=== PATIENT | female | born 1975 | race Caucasian/White ===

== ENCOUNTER → 2018-02-20 | Outpatient (CLI) | payer OTHER ==
[2018-02-20] VITALS (16 sets, daily range): BP systolic 129–167; BP diastolic 89–110
[~2018-02-20] MED LIST: LEVAQUIN 500 M500 M2 PO; WELLBUTRIN SR150 MG PO
--- NOTE | 2018-03-06 15:42 | CARD ---
[address] [address] CARDIAC CATH REPORT Name: DOMINIQUE JACKMAN Room: [facility].#: [id number] Admission: 02/20/18 Attend Phys: Keyur Jha MD Discharge: Date of : 77 Report #: [id number] THIS REPORT FOR: //name// CC: Keyur Kumarinton DATE OF SERVICE: 02/20/2018 TILT TABLE TEST ORDERING PHYSICIAN: Rigoberto Briceño MD, [facility] INDICATION: Presyncope. CONSENT: The risks and benefits of the procedure described to the patient in lay terms. The patient elects to proceed. Baseline blood pressure is 138/90 with the heart rate of 78. Underlying rhythm is sinus. The patient was tilted per protocol to 70 degrees. At that time, her blood pressure increased to 166/94 with the pulse of 94. The patient felt nauseous and dizzy and the patient maintained a sinus rhythm. Blood pressure and heart rate were monitored per protocol every 2-3 minutes. The patient had continued symptoms of nausea, weakness, hand tingling and started seeing a black spots, but she still remained hemodynamically stable with blood pressures 150/102 with a pulse of 85 and in sinus rhythm. The patient then apparently had a syncopal spell with tremor-like activity and her blood pressure still remained stable at 159/105 with a pulse of 93. There were no cardiac pauses. She still maintains a sinus rhythm. She immediately regained consciousness and her blood pressure still remains stable 157/97, heart rate of 75. IMPRESSION: Clinically positive tilt table test for vasovagal syncope, but hemodynamics remained stable. There was no vasomotor or vasoinhibitory hemodynamic response. <ELECTRONICALLY SIGNED> By: Keyur Jha MD, FACC 03/06/18 1542 [id number] [id number] Jha MD, FACC /nt
== END | disposition home or self-care (01) ==
LOC: M.CL 09:51
DX: R55 Syncope and collapse (principal)

== ENCOUNTER 2018-09-15 22:37 | Emergency (ER) | payer OTHER ==
[~2018-09-15] VITALS: Ht 157.5 cm; Wt 61.2 kg
[2018-09-15] MEDS ORDERED: WELLBUTRIN SR150 MG PO (22:54)
[2018-09-15 23:53] LABS: ABSOLUTE BASOPHILS 0.1 thou/uL (0.0-0.2); ABSOLUTE EOSINOPHILS 0.1 thou/uL (0.0-0.7); ABSOLUTE LYMPHOCYTES 3.1 thou/uL (0.8-5.3); ABSOLUTE MONOCYTES 0.6 thou/uL (0.0-1.2); ABSOLUTE NEUTROPHILS 4.3 thou/uL (1.6-8.1); EOSINOPHILS 1.4 %; HEMATOCRIT 40.2 % (37.0-47.0); HEMOGLOBIN 13.7 gm/dL (12.0-15.0); LYMPHOCYTES 37.9 %; MCH 34.8 pg (26.0-34.0); MCHC 34.2 g/dL (28.0-37.0); MCV 101.9 fL (80.0-100.0); MONOCYTES 7.5 %; NUCLEATED RBCS 0 /100WBC; PLATELET COUNT* 216 thou/uL (150-400); POLYS 52.2 %; RBC 3.95 mil/uL (4.20-5.00); RDW-CV 13.1 % (10.5-14.5); WBC 8.2 thou/uL (4.0-11.0)
[2018-09-15 23:57] LABS: CALCIUM 9.1 mg/dL (8.5-10.1); CREATININE 0.8 mg/dL (0.6-1.3); POTASSIUM 4.3 mmol/L (3.5-5.1)
[2018-09-16 00:01] LABS: ALBUMIN 4.1 g/dL (3.4-5.0); TOTAL BILIRUBIN 0.2 mg/dL (<0.1-1.0); TOTAL PROTEIN 7.9 g/dL (6.4-8.2)
[2018-09-16] MEDS ORDERED: LEVAQUIN 500 M500 M2 PO (00:46)
[2018-09-16 00:59] VITALS: BP 111/72
[2018-09-16 01:25] LABS: ESR (SEDRATE) 7 mm/hr (0-20)
== END 2018-09-16 01:01 | disposition home or self-care (01) ==
LOC: M.ERS 22:37
PROVIDERS: Physician Assistant
DX: M25.522 Pain in left elbow (principal); R22.32 Localized swelling, mass and lump, left upper limb; Z88.5 Allergy status to narcotic agent; W57.XXXA Bitten or stung by nonvenomous insect and other nonvenomous arthropods, initial encounter; Y93.89 Activity, other specified; Y92.89 Other specified places as the place of occurrence of the external cause; Y99.8 Other external cause status

== ENCOUNTER → 2018-11-06 | Outpatient (CLI) | payer OTHER ==
[~2018-11-06] MED LIST changes: +MEDROLDOSEPACK PO
== END ==
LOC: M.RAD 15:04
DX: M25.522 Pain in left elbow (principal)

== ENCOUNTER 2018-11-09 14:48 | Emergency (ER) | payer OTHER ==
[~2018-11-09] VITALS: Ht 157.5 cm; Wt 61.2 kg
[~2018-11-09 14:48] MED LIST changes: -MEDROLDOSEPACK PO
[2018-11-09 15:38] LABS: ABSOLUTE BASOPHILS 0.1 thou/uL (0.0-0.2); ABSOLUTE LYMPHOCYTES 2.5 thou/uL (0.8-5.3); ABSOLUTE MONOCYTES 0.8 thou/uL (0.0-1.2); ABSOLUTE NEUTROPHILS 7.5 thou/uL (1.6-8.1); BASOPHILS 0.8 %; EOSINOPHILS 0.4 %; HEMATOCRIT 40.7 % (37.0-47.0); HEMOGLOBIN 13.9 gm/dL (12.0-15.0); LYMPHOCYTES 23.2 %; MCH 34.7 pg (26.0-34.0); MCHC 34.1 g/dL (28.0-37.0); MCV 101.9 fL (80.0-100.0); MONOCYTES 7.5 %; NUCLEATED RBCS 0 /100WBC; PLATELET COUNT* 197 thou/uL (150-400); POLYS 68.1 %; RBC 3.99 mil/uL (4.20-5.00); RDW-CV 12.7 % (10.5-14.5)
[2018-11-09 15:48] LABS: CALCIUM 9.1 mg/dL (8.5-10.1); CREATININE 0.9 mg/dL (0.6-1.3)
[2018-11-09 15:54] LABS: ALBUMIN 3.6 g/dL (3.4-5.0); TOTAL BILIRUBIN 0.4 mg/dL (<0.1-1.0); TOTAL PROTEIN 7.1 g/dL (6.4-8.2); URIC ACID* 3.9 mg/dL (2.6-7.2)
[2018-11-09 16:42] LABS: ESR (SEDRATE) 2 mm/hr (0-20)
[2018-11-09] MEDS ORDERED: MEDROLDOSEPACK PO (16:48)
[2018-11-09 17:00] VITALS: BP 160/109
== END 2018-11-09 17:01 | disposition home or self-care (01) ==
LOC: M.ERS 14:48
PROVIDERS: Nurse Practitioner Family
DX: M25.422 Effusion, left elbow (principal); F17.200 Nicotine dependence, unspecified, uncomplicated; M79.7 Fibromyalgia; Z88.8 Allergy status to other drugs, medicaments and biological substances; Z90.710 Acquired absence of both cervix and uterus

== ENCOUNTER 2019-01-18 13:31 | Inpatient (IN) | payer OTHER ==
[~2019-01-18] VITALS: Ht 157.5 cm; Wt 61.7 kg
[~2019-01-18 13:31] MED LIST changes: +MEDROLDOSEPACK PO
[2019-01-18 13:50] VITALS: BP 145/102
[2019-01-18] MEDS ORDERED: KEFLEX500 M2 PO (13:54)
[2019-01-18 14:27] LABS: ABSOLUTE BASOPHILS 0.1 thou/uL (0.0-0.2); ABSOLUTE EOSINOPHILS 0.1 thou/uL (0.0-0.7); ABSOLUTE LYMPHOCYTES 2.4 thou/uL (0.8-5.3); ABSOLUTE MONOCYTES 0.5 thou/uL (0.0-1.2); ABSOLUTE NEUTROPHILS 9.4 thou/uL (1.6-8.1); BASOPHILS 0.5 %; EOSINOPHILS 0.6 %; HEMATOCRIT 38.9 % (37.0-47.0); HEMOGLOBIN 13.2 gm/dL (12.0-15.0); LYMPHOCYTES 18.9 %; MCH 34.1 pg (26.0-34.0); MCV 100.3 fL (80.0-100.0); MONOCYTES 4.4 %; MPV 9.9 fl. (7.2-11.1); NUCLEATED RBCS 0 /100WBC; PLATELET COUNT* 218 thou/uL (150-400); POLYS 75.6 %; RBC 3.88 mil/uL (4.20-5.00); RDW-CV 12.8 % (10.5-14.5); WBC 12.5 thou/uL (4.0-11.0)
[2019-01-18 14:40] LABS: ALBUMIN 3.6 g/dL (3.4-5.0); CALCIUM 8.8 mg/dL (8.5-10.1); CREATININE 0.9 mg/dL (0.6-1.3); POTASSIUM 3.4 mmol/L (3.5-5.1); TOTAL BILIRUBIN 0.3 mg/dL (<0.1-1.0); TOTAL PROTEIN 7.2 g/dL (6.4-8.2)
[2019-01-18 14:41] LABS: URINE BILIRUBIN NEGATIVE (Negative); URINE BLOOD TRACE (Negative); URINE CLARITY CLEAR; URINE COLOR YELLOW; URINE GLUCOSE-RANDOM NEGATIVE (Negative); URINE KETONES NEGATIVE (Negative); URINE LEUKOCYTES-REFLEX NEGATIVE (Negative); URINE NITRITE-REFLEX NEGATIVE (Negative); URINE PROTEIN NEGATIVE (Negative); URINE SPECIFIC GRAVITY 1.025 (1.005-1.030); URINE UROBILINOGEN 0.2 E.U./dl (0.2-1.0)
[2019-01-18 15:15] VITALS: BP 123/78
[2019-01-18 16:21] VITALS: BP 140/94
--- NOTE | 2019-01-18 16:48 | NUR ---
PATIENT ADMITTED TO ROOM 318 FROM ER. LEFT ELBOW DRAINAGE NOTED, BURSA DRAINED IN JUL AND PATIENT STATED HAVING ISSUES WITH ELBOW EVER SINCE. PATIENT SAW DR. BENEDICT TODAY, PATIENT STATED DR. ESCOBAR STATED HE WOULD DO SURGERY TOMORROW ON ELBOW. PHOTO TAKEN OF ELBOW AND DRESSING PLACED. IVF AND SCHED ABX INFUSING. PRN HYDROCODONE GIVEN PER JAN ORDER. NO OTHER SKIN BREAKDOWN NOTED. REFUSED SCD'S. REG DIET, NPO AFTER MIDNIGHT. INSTRUCTED PATIENT TO CALL FOR ASSISTANCE GETTING OUT OF BED, PATIENT STATED SHE HAS SYNCOPLE EPISODES AND HAS FALLEN. CALL LIGHT WITHIN REACH, WILL CONTINUE TO MONITOR.
[2019-01-18 21:31] VITALS: BP 123/72
[2019-01-19 04:48] VITALS: BP 123/72
[2019-01-19 05:00] LABS: ABSOLUTE EOSINOPHILS 0.1 thou/uL (0.0-0.7); ABSOLUTE LYMPHOCYTES 3.6 thou/uL (0.8-5.3); ABSOLUTE MONOCYTES 0.6 thou/uL (0.0-1.2); ABSOLUTE NEUTROPHILS 2.4 thou/uL (1.6-8.1); BASOPHILS 0.5 %; EOSINOPHILS 1.4 %; HEMATOCRIT 37.1 % (37.0-47.0); HEMOGLOBIN 12.5 gm/dL (12.0-15.0); LYMPHOCYTES 53.9 %; MCH 34.3 pg (26.0-34.0); MCHC 33.7 g/dL (28.0-37.0); MCV 101.8 fL (80.0-100.0); MONOCYTES 8.5 %; MPV 9.7 fl. (7.2-11.1); NUCLEATED RBCS 0 /100WBC; PLATELET COUNT* 166 thou/uL (150-400); POLYS 35.7 %; RBC 3.65 mil/uL (4.20-5.00); RDW-CV 12.8 % (10.5-14.5); WBC 6.7 thou/uL (4.0-11.0)
[2019-01-19 05:14] LABS: CALCIUM 8.2 mg/dL (8.5-10.1); CREATININE 0.8 mg/dL (0.6-1.3); POTASSIUM 3.9 mmol/L (3.5-5.1)
--- NOTE | 2019-01-19 05:43 | NUR ---
PATIENT ALERT/ORIENTED X4, PLEASANT. PT UP TO BATHROOM WITH STANDBY ASSIST. PT WITH FLUIDS/ANTIBIOTICS INFUSING IN RT HAND PER DR ORDER. PT REFUSING PAIN MEDIATION AT HS STATING SHE WOULD LIKE TO HAVE TWO HYDROCODONE CLOSE TO MIDNIGHT TO GET HER THROUGH THE NIGHT WHILE SHE IS NPO. PT INFORMED SHE HAD IV PAIN MEDS IF NEEDED. PO PAIN MEDS GIVEN CLOSE TO MIDNIGHT PER PT REQUEST AND PT SLEPT WELL THE REST OF THE NIGHT. ICE PACK PROVIDED FOR LT ELBOW. ELBOW WITH SUMAN WRAP IN PLACE AND ELEVATED ON PILLOW. PT DENIES NEEDS AT THIS TIME. FREQUENTLY USED ITEMS AND CALL LIGHT WITHIN REACH. SIDERAILS UPX2. WILL CONTINUE TO MONITOR.
[2019-01-19 07:10] VITALS: BP 128/79
--- NOTE | 2019-01-19 09:40 | EKG ---
[place] [address] ELECTROCARDIOGRAM REPORT Name: DOMINIQUE JACKMAN Room: [address] ADM IN M.R.#: [id number] Admission: 01/18/19 Attend Phys: Margarito Elam MD Discharge: Date of : 77 Report #: [id number] THIS REPORT FOR: //name// [facility] Test Date: 2019-01-19 Test Time: 05:09:35 Pat Name: DOMINIQUE JACKMAN Department: Room: [address] Gender: F Pharmaceutical Laboratory Technician: Kenan Stanley : 1975 Requested By: Bobby Tang Order Number: [id number] Jose Guadalupe MD: Bandar Perez Measurements Intervals Drummond Rate: 58 P: 50 IN: 131 QRS: 25 QRSD: 81 T: 28 QT: 438 QTc: 431 Interpretive Statements Sinus rhythm No previous ECG available for comparison Electronically Signed On 01-19-2019 9:40:40 PEDIATRIC NEUROPSYCHOLOGIST by Bandar Perez [email or web address] <ELECTRONICALLY SIGNED> By: Bandar Perez MD, [facility] 01/19/19 0940 0509 0509 Bandar Perez MD, FACC /EPI
[2019-01-19 09:55] VITALS: BP 131/95
--- NOTE | 2019-01-19 14:54 | NUR ---
RIGHT BASILIC VESSEL ACCESSED FOR 4 GREEK SINGLE LUMEN PICC. LINE PRE-TRIMMED TO 31 CM AND ADVANCED TO THE ZERO MARIA A WITH NO RESISTANCE MET. UPPER ARM CIRCUMFERENCE ABOVE INSERTION SITE= 12 3/4". SHERLOCK MAGNET AND 3CG CONFIRMATION OF TIP TERMINATION AT THE CAVOATRIAL JUMCTION. GUIDEWIRE REMOVED, LINE FLUSHED AND REPORT GIVEN TO JORY HERNANDEZ.
--- NOTE | 2019-01-19 16:16 | NUR ---
SW met with pt to complete initial assessment, introduce self, and SW role. Pt alert, oriented, pleasant. Pt lives at home with her significant other Stef. Pt says she has support at home and does not anticipate any dc needs and is hopeful to dc soon. SW to continue to follow to assist with safe dc planning if needs arise.
[2019-01-19 16:24] VITALS: BP 129/78
--- NOTE | 2019-01-19 16:54 | NUR ---
PATIENT HAD I/D THIS AM TO LEFT ELBOW WITH DR. ESCOBAR. DRESSING AND SUMAN WRAP INTACT, PATIENT STATED HER LEFT HAND FELT TINGLY BUT SHE WAS ABLE TO MOVE FINGERS AND CAP REFILL LESS THAN 3 SECONDS. LEFT ARM WARM TO THE TOUCH. LEFT ARM ELEVATED AND ICE NEEDED. PATIENT HAD PICC PLACED TO RIGHT UPPER ARM PER ID ORDERS. PATIENT REMAINS ON IV VANCOMYCIN. PRN VICODIN GIVEN X 1 THIS SHIFT WITH GOOD RELIEF NOTED.
[2019-01-19 22:04] VITALS: BP 127/84
--- NOTE | 2019-01-20 05:15 | NUR ---
PATIENT C/O LT ELBOW PAIN AND HEADACHE AT BEGINNING OF SHIFT. PT WAS GIVEN HYDROCODONE 2 TABS PRIOR TO SHIFT CHANGE BUT HEAD CONTINUED TO HURT. FENTANYL 50MCG IV GIVEN PER PT REQUEST. LT ELBOW ELEVATED; DSG C/D/I. PT UP WITH STANDBY TO BATHROOM TO VOID. PT WITH RT PICC LINE; ABLE TO FLUSH/DRAW WITH NO RESISTANCE. PT GIVEN VANC IV AM DOSE AND BEGAN HAVING REDNESS AND ITCHING OF BACK, CHEST AND HEAD. YOUCALLMD PLACED TO DR DENT AND ORDER RECEIVED FOR BENEDRYL 50MG PO Q6H PRN FOR ITCHING. ALSO SAID TO CONTINUE THE IV VANC ORDERED. PT GIVEN TWO HYDROCODONE THIS AM FOR ELBOW PAIN. PT SAID BENEDRYL HAS HELPED WITH ITCHING AND HAS DENIED ANY DIFFICULTY BREATHING OR TIGHTNESS IN THROAT OR CHEST. FREQUENTLY USED ITEMS AND CALL LIGHT WITHIN REACH. SIDERAILS UPX2. WILL CONTINUE TO MONITOR.
[2019-01-20 07:50] VITALS: BP 114/67
[2019-01-20 12:00] VITALS: BP 115/63
--- NOTE | 2019-01-20 12:24 | CON ---
[address] [address] CONSULTATION Name: GASPERDOMINIQUE Yanes Room: [address] IN .R.#: [id number] Admission: 01/18/19 Attend Phys: Margarito Elam MD Discharge: Date of : 77 Report #: [id number] THIS REPORT FOR: //name// CC: Margarito Elam Bobby Elder DATE OF SERVICE: 01/19/2019 INFECTIOUS DISEASE CONSULTATION: ATTENDING PHYSICIAN: Margarito Elam MD. REASON FOR EVALUATION: Left elbow deep infection. HISTORY OF PRESENT ILLNESS: Chart reviewed, patient examined. This is a 43-year-old woman with a history of fibromyalgia who apparently was on vacation in [place], believes she was bitten on the olecranon aspect of her left elbow. She developed some inflammatory changes when she returned. She was evaluated and felt to have an infection. She was treated with antibiotics, corticosteroids and underwent perhaps a drainage procedure, has failed to resolve the issue after a couple of courses of antibiotics. She was seen by Orthopedic Surgery who did a more formal I and D back in October. Initial injury was in 07/2018. She has had open sites since that time followed by the wound care center and felt to have not progressed in terms of healing. So, she was readmitted for additional evaluation, did undergo operative debridement. Initial testing in terms of blood cultures were otherwise unremarkable. Operative cultures in progress. She was empirically started on antimicrobials with vancomycin. She has moderate degree of pain, denies any recent fevers. Appetite has been fair. Weight has been stable. No pulmonary or gastrointestinal related complaints. ALLERGIES: To no medicines. CURRENT MEDICATIONS: Include acetaminophen, ondansetron, fentanyl, vancomycin, pantoprazole, enoxaparin. PAST MEDICAL HISTORY: Fibromyalgia, previous hysterectomy, some syncopal episodes. SOCIAL HISTORY: Smokes in the last 27 years of tobacco. No illicit drug use. Does drink a fair amount. FAMILY HISTORY: Noncontributory. REVIEW OF SYSTEMS: Otherwise, unremarkable 10-point [place] [address] CONSULTATION Name: DOMINIQUE JACKMAN Room: [address]#: [id number] Admission: 01/18/19 Attend Phys: Margarito Elam MD Discharge: Date of : 77 Report #: [id number] described above. PHYSICAL EXAMINATION: GENERAL: She is pleasant, appears to be in pdpj-dh-swpsjkjy distress. She is seen postop. She is lucid. She is bundled in several blankets, appears somewhat undernourished. VITAL SIGNS: Temperature 98.5, pulse 73, respirations 16, blood pressure 131/95. SKIN: Warm, dry. SKIN: Extensive tattoos. HEENT: Normocephalic. Extraocular muscles intact. NECK: Supple. LUNGS: Clear to auscultation. HEART: Regular. I do not appreciate a murmur. ABDOMEN: Soft, nontender, nondistended. There is some dressing over the left elbow that was not disturbed. GENITOURINARY: Deferred. RECTAL: Deferred. LABORATORY DATA: Blood cultures sterile thus far. Electrolytes: Sodium 139, potassium 3.9, chloride 107, bicarbonate 23, BUN and creatinine 15 and 0.8. CBC: White count of 6.7, H and H 12.5/37.1, platelets of 166. Lactic acid 0.9, that is down from initially 2.5. Liver functions unremarkable. Albumin 3.6. Total protein 7.2. Estimated GFR of 69. ASSESSMENT: Chronic wound associated with the left elbow. She has had several procedures, ongoing wound care without success. I think it is reasonable to assume there may be some residual infection, perhaps reasons to have somewhat slow wound healing, her smoking history, but since she is seen postop, we will await those culture results. Continue empiric therapy, vancomycin should give us adequate treatment. This did occur perhaps through a bug bite, would think if there was a transmissible microorganism from the particular arthropod would have some ongoing local issues. We will discuss with Dr. Tang to see if there is anything odd about the appearance of the tissue, not convinced she has any systemic illness at this point. <ELECTRONICALLY SIGNED> By: Geoff Bernstein MD 01/20/19 1224 1217 [id number] Bernstein MD /nt
[2019-01-20 14:54] VITALS: BP 104/50
--- NOTE | 2019-01-20 16:41 | OP ---
[address] [address] OPERATIVE REPORT Name: DOMINIQUE JACKMAN Room: [address] IN .R.#: [id number] Admission: 01/18/19 Attend Phys: Margarito Elam MD Discharge: Date of : 77 Report #: [id number] THIS REPORT FOR: //name// CC: Margarito Elder DATE OF SERVICE: 01/19/2019 PREOPERATIVE DIAGNOSIS: Left elbow wound dehiscence with drainage. POSTOPERATIVE DIAGNOSIS: Left elbow wound dehiscence with drainage. PROCEDURE: Left elbow arthrotomy with irrigation and debridement. SURGEON: DO VIRGIL Cervantes II SURGEON: LAITH Leo ANESTHESIA: LMA. ESTIMATED BLOOD LOSS: Minimal. ANTIBIOTICS: Vancomycin preoperatively. DRAINS: None. COMPLICATIONS: None. CONDITION OF PATIENT: Sable to the recovery room. DESCRIPTION OF PROCEDURE: The patient was taken to the operative suite and placed supine on the operative table and given appropriate anesthesia. The patient's left elbow was sterilely prepped and draped. No tourniquet was applied. The patient's previous wound from bursectomy was opened along its margins. It was then freshened with a scalpel along its edges utilizing a curette and rongeur. Subcuticular tissue and granulation tissue was removed. There was found to be slight purulence noted to the fluid; however, no cristobal pus. There was straw colored serous drainage and bloody drainage noted. There was no significant pocketing. There was only one minor area with possible involvement of the joint, which was on the medial ulnar side that did not invade the ulnar nerve. Utilizing a curette, this area was curetted down to fresh bleeding tissue. It was then cleansed utilizing 3 liters of Pulsavac saline with bacitracin and 3 liters of Pulsavac saline without bacitracin with curettings in between to remove all necrotic and possible infected tissue. Cultures were obtained prior to this utilizing [place] [address] OPERATIVE REPORT Name: DOMINIQUE JACKMAN Room: [address] IN [facility].#: [id number] Admission: 01/18/19 Attend Phys: Margarito Elam MD Discharge: Date of : 77 Report #: [id number] irrigation was performed. Tissue did look viable without significant erythema and was closed utilizing 3-0 nylon in simple interrupted fashion. The patient was then placed in a soft dressing with posterior splint. Due to the limited nature of this infection, I am able to close the skin without significant erythema. The patient is discussed continued IV antibiotics until appropriate oral medications can be determined if is an option and subsequent discharge with close followup and monitoring. The patient tolerated the procedure well and was transferred to the recovery room in stable condition. Counts were correct throughout the procedure. <ELECTRONICALLY SIGNED> By: Bobby Tang II DO 01/20/19 1641 2131 [id number] Gualberto Tang II, DO /nt
--- NOTE | 2019-01-20 16:41 | CON ---
[address] [address] CONSULTATION Name: GASPERDOMINIQUE M Room: [address] IN .R.#: [id number] Admission: 01/18/19 Attend Phys: Margarito Elam MD Discharge: Date of : 77 Report #: [id number] THIS REPORT FOR: //name// CC: Margarito Elder DATE OF SERVICE: 01/19/2019 CHIEF COMPLAINT: Left elbow wound, nonhealing with possible infection. HISTORY OF PRESENT ILLNESS: The patient is a 43-year-old white female who was previously seen in the clinic, has had a wound since 07/2018 when she went to [place] mentioned a possible insect bite. Has tried various antibiotics and anti-inflammatory meds with her PCP, Dr. Elder as well as injections and eventually was referred for orthopedic evaluation and subsequently undergone surgical resection of bursa on the posterior aspect of her left elbow approximately one month ago. The patient had improvement after 2-week visit; however, then had continued use of the elbow and noticed increased swelling and finally slight opening in the wound and was sent for the ER for evaluation. The patient has had intractable pain, has undergone IV antibiotics here in the hospital. Denies any fevers, chills. No nausea or vomiting. No other significant complaints. PROBLEM LIST: Joint effusion of the elbow, pain and swelling of the upper extremity, fibromyalgia, syncopal episode, hysterectomy. PAST SURGICAL HISTORY: Hysterectomy and bursa drained. FAMILY HISTORY: The patient denies any cancers in the family or any other joint inflammation. SOCIAL HISTORY: The patient denies any recreational drug use. Does use tobacco every day, quitting cigarettes 1 to 1-1/2 packs, had used for the last 27 years. Alcohol frequently, greater than 10 beers. REVIEW OF SYSTEMS: Negative except for pertinent positives on a 12-system review of systems. ALLERGIES: No known drug allergies. MEDICATIONS: Keflex. PHYSICAL EXAMINATION: VITAL SIGNS: Blood pressure 123/78, pulse ox 99, pulse 74, respirations 19, temperature 97.7. [place] [address] CONSULTATION Name: DOMINIQUE JACKMAN Room: [address] IN [facility]#: [id number] Admission: 01/18/19 Attend Phys: Margarito Elam MD Discharge: Date of : 77 Report #: [id number] GENERAL: Alert and oriented, no significant distress. HEENT: Normocephalic, atraumatic. Pupils equal, round, reactive to light and accommodation. Nose clear without ulcerations. Mouth, moist mucous membranes. NECK: Supple, no JVD, no bruit. CARDIOVASCULAR: Regular rate and rhythm. Cap refill normal. LUNGS: Clear to auscultation bilaterally. No wheezes, rhonchi or rales. ABDOMEN: Soft, bowel sounds present, no masses. EXTREMITIES: The patient's left elbow does have scant purulent discharge and tenderness with all ranges of motion and opening of the wound with pale granulation tissue. SKIN: Normal in color, only minor erythema, no streaking. PSYCHIATRIC: The patient has appropriate mood and affect. NEUROLOGICAL: The patient is alert, conversational. Cranial nerves intact. LABORATORY STUDIES: White blood cells 12.5. Urine clean catch, only trace blood, negative for nitrites. Lactic acid 2.5, potassium 3.4, sodium 138, chloride 103, ALT 24, glucose 123, absolute neutrophils 9.4. Blood cultures have been received, no results this time. IMPRESSION: Nonhealing wound, left elbow with elbow drainage; prior history of bursectomy; intractable pain and leukocytosis. PLAN: At this time, the patient has been admitted, has analgesics. We will hydrate and start IV antibiotics. We will proceed with orthopedic irrigation and debridement of the elbow and posterior wound with closure and continue IV antibiotics at this time with future antibiotic treatment. The patient has discussed this treatment plan and is agreeable, is educated at bedside. <ELECTRONICALLY SIGNED> By: Bobby Tang II, DO 01/20/19 1641 2128 1549Bobby Tang II, DO /nt
--- NOTE | 2019-01-20 17:11 | NUR ---
[employer] INFORMED BY DR LAN THAT THE PATIENT WOULD NEED I.V. ABT'S AT D/C. PATIENT DOES NOT HAVE INSURANCE. D/C ROUGE SIFTER AND MILLER SPOKE TO RENE WITH [employer] TO DISCUSS THE [id number] AMOUNT FOR PATIENT PAY WITH [employer]. RENE INFORMS THAT THE COST WOULD BE $48 PER/DAY FOR THE ABT, AND $20 PER/DAY FOR SUPPLIES. [facility] ALSO HAS PAYMENT ARRANGEMENT OPTIONS OF 6, 12, AND 18 MONTH PLANS IF NEEDED DEPENDENT ON THE LENGTH OF THE THERAPY. AIDE SPOKE TO THE PATIENT TO DISCUSS THIS INFO AND SHE INFORMS THAT THE AMOUNT SEEMS REASONABLE. SHE IS JUST CONCERNED WITH HOW LONG SHE WOULD NEED TO HAVE THE ABT'S. D/C ROUGE SIFTER AND MILLER INFORMED THE PATIENT THAT IT COULD BE DISCUSSED FURTHER TOMORROW WITH DR LAN. CM WILL REMAIN AVAILABLE TO ASSIST AND FOLLOW NEEDED.
--- NOTE | 2019-01-20 17:19 | NUR ---
PATIENT GIVEN PRN HYDRODOCONE FOR LEFT ELBOW PAIN. DRESSING REMAINS INTACT. SPOKE WITH DR. ESCOBAR AND GRECIA FOR PATIENT TO DISCHARGE WHEN READY. PATIENT TO ABX INFUSIONS PER DR. LAN, WILL REMAIN ON VANCOMYCIN AT THIS TIME.
[2019-01-20 22:46] VITALS: BP 137/78
--- NOTE | 2019-01-21 06:39 | NUR ---
PATIENT SLEPT WELL DURING THIS SHIFT. PT REQUESTED PAIN MEDICATION THIS AM; HYDROCODONE 2 TABS GIVEN. PT UP TO BATHROOM WITH STEADY GAIT. ANTIBIOTICS INFUSED PER DR ORDER IN RT SINGLE LUMAN PICC. ABLE TO DRAW/FLUSH PICC WITH NO RESIDEANCE. FREQUENTLY USED ITEMS AND CALL LIGHT WITHIN REACH. SIDERAILS UPX2. WILL CONTINUE TO MONITOR
[2019-01-21 08:00] VITALS: BP 132/78
[2019-01-21 13:32] VITALS: BP 137/78
[2019-01-21] MEDS ORDERED: VANCOMYCIN HC1.25 GM IV (14:13)
[2019-01-21] MEDS ORDERED: NORCO 5-325 TA1 EACH PO (15:10)
[2019-01-21 17:10] VITALS: BP 136/83
--- NOTE | 2019-01-21 17:29 | NUR ---
PATIENT DISCHARGED TO HOME WITH IV ANTIBIOTICS. DISCHARGE PAPERS REVIEWED AND SIGNED. PRESCRIPTIONS AND INFORMATION SHEETS GIVEN. PICC LINE IN PLACE FOR HOME IV ANTIBIOTICS. PATIENT SEEN BY BECKY CONSTRUCTION INSPECTOR FOR TIV ADMINISTRATION TEACHING. PATIENT DENIES ANY FURTHER NEEDS. PATIENT TAKEN AMBULATORY TO EXIT. LEFT WITH .
== END 2019-01-21 17:30 | disposition home or self-care (01) | DRG 857 ==
LOC: M.ERS 13:31 → M.3W 14:39 → M.TBA-ER 14:39 → M.3W 15:21
PROVIDERS: Emergency Medicine Emergency Medical Services; ADMIT Internal Medicine
PROC: 02HV33Z Insertion of Infusion Device into Superior Vena Cava, Percutaneous Approach (ICD-10-PCS; principal; 2019-01-19)
PROC: 0JDH0ZZ Extraction of Left Lower Arm Subcutaneous Tissue and Fascia, Open Approach (ICD-10-PCS; principal; 2019-01-19)
DX: T81.42XA Infection following a procedure, deep incisional surgical site, initial encounter (principal); T81.32XA Disruption of internal operation (surgical) wound, not elsewhere classified, initial encounter; M00.9 Pyogenic arthritis, unspecified; R65.10 Systemic inflammatory response syndrome (SIRS) of non-infectious origin without acute organ dysfunction; M79.7 Fibromyalgia; F17.210 Nicotine dependence, cigarettes, uncomplicated; Y83.8 Other surgical procedures as the cause of abnormal reaction of the patient, or of later complication, without mention of misadventure at the time of the procedure; Z90.710 Acquired absence of both cervix and uterus; Z79.899 Other long term (current) drug therapy; Y92.89 Other specified places as the place of occurrence of the external cause

== ENCOUNTER 2019-02-23 21:48 | Inpatient (IN) | payer OTHER ==
[~2019-02-23] VITALS: Ht 160 cm; Wt 70.4 kg
--- NOTE | ~2019-02-23 | CON ---
[address] [address] CONSULTATION Name: GASPERDOMINIQUE Joaquín Room: [address] IN M.R.#: [id number] Admission: 02/24/19 Attend Phys: Rosaura Hall Discharge: Date of : 77 Report #: [id number] THIS REPORT FOR: //name// CC: Angel Pinzon DATE OF SERVICE: 02/27/2019 TYPE OF REPORT: New inpatient consultation. REASON FOR CONSULTATION: Lymphadenopathy in the neck. HISTORY OF PRESENT ILLNESS: The patient is a very pleasant 43-year-old female who has a history of recent visit to [place] where she had a left elbow insect bite. The patient developed an abscess in the left elbow region and was treated with incision and drainage and antibiotics initially. The patient was then referred to Orthopedics and saw Dr. Tang and underwent surgery for further treatment and was kept on vancomycin for approximately 4-5 weeks. The patient in the interim developed a rash, which was attributed to vancomycin. Her rash recently got worsened and she was admitted to the hospital 2 days ago for worsening rash. The patient was seen by Surgery and had a biopsy from the skin on the left abdomen. The patient also complained of swelling in her neck and had a neck CT scan done on 02/25/2019. CT scan showed multiple bilateral cervical chain lymph nodes including bilateral subpectoral lymph nodes and axillary lymph nodes. Largest lymph node was measured at 1.5 cm in size in the right level 2A. The patient also had a CT scan of the abdomen and pelvis done on 02/23/2019, which only showed bilateral renal cysts along with a 2.5 cm left ovarian cyst but otherwise no lymphadenopathy or hepatosplenomegaly was noted. She also had a right upper extremity ultrasound Doppler, which was negative for any deep venous thrombosis. Abdominal ultrasound also did not reveal any changes in the right upper quadrant. Chest x-ray done on 02/23/2019 also did not show any acute cardiopulmonary process. In the meanwhile, the patient's WBC count is increased to 14. She has hemoglobin and hematocrit of 11.9 and 35.5 respectively with normal MCV and MCHC. Her platelet count was 135 today, which is improved from admission at 98. WBC differential mainly shows some eosinophilia at 1.6. ESR was 19 on 02/24/2019. C-reactive protein checked on 02/24/2019, however, was elevated at 47.6. The patient has had some elevation in her AST and ALT of 69 and 203 respectively, alkaline phosphatase elevated at 379, which is decreased from 547. Her vancomycin has since been discontinued. BUN and creatinine was 7 and 0.8 respectively when checked today along with electrolytes being normal. Hematology/Oncology was consulted due to this lymphadenopathy. The patient does complain of having some night sweats and unexplained fevers over the last several days. She also complains of weight loss [place] [address] CONSULTATION Name: DOMINIQUE JACKMAN Room: [address] IN [facility].#: [id number] Admission: 02/24/19 Attend Phys: Rosaura Hall Discharge: Date of : 77 Report #: [id number] to eat as she has had nausea and vomiting. The patient otherwise does not complain of any headache, dizziness, nausea, vomiting, constipation, diarrhea, chest pain, palpitations, or other significant symptoms. PAST MEDICAL HISTORY: 1. Fibromyalgia. 2. Syncopal episodes. 3. Left elbow insect bite. 4. Lymphadenopathy in the neck. 5. Maculopapular generalized rash. PAST SURGICAL HISTORY: 1. Hysterectomy. 2. Left arm abscess drainage. 3. Skin biopsy from the abdomen. PERSONAL HISTORY: The patient smokes half pack of cigarettes per day for the last 30 years. The patient does not use alcohol except for rare occasions. Does not use any illicit drugs, otherwise. ALLERGIES: to APPLE. CURRENT MEDICATIONS: 1. Tramadol 50 mg p.o. q. 6 hours as needed. 2. Hydrocodone/acetaminophen 1 tablet p.o. q. 3 hours as needed. 3. Fluconazole 100 mg p.o. daily. 4. Solu-Medrol 62.5 mg IV push q. 8 hours. 5. Ibuprofen 400 mg p.o. q. 6 hours as needed. 6. Doxycycline 100 mg p.o. b.i.d. 7. Sodium chloride 1000 mL IV hours of hydration. 8. Protonix 40 mg IV as directed. 9. Dilaudid 0.5 mg IV push q. 2 hours as needed. 10. Promethazine 12.5 mg p.o. q. 4 hours as needed. 11. Oxycodone 5 mg p.o. q. 4 hours as needed. 12. Melatonin 10 mg p.o. at bedtime as needed. 13. Magnesium oxide for replacement. REVIEW OF SYSTEMS: A 13-point review of systems were obtained, which were negative for any findings of those discussed in the HPI. PHYSICAL EXAMINATION: VITAL SIGNS: Temperature today was 36.9 degrees centigrade, pulse was 89 beats per minute, respiratory rate was 18 breaths per minute and blood pressure 111/[place] [address] CONSULTATION Name: DOMINIQUE JACKMAN Room: [address]#: [id number] Admission: 02/24/19 Attend Phys: Rosaura Hall Discharge: Date of : 77 Report #: [id number] GENERAL: Awake, alert and oriented x 3. No apparent distress. HEENT: EOMI/PERRL. LYMPHATICS: The patient has scattered lymphadenopathy in the base of the neck bilaterally. These are tender on the right jugular digastric area. Nontender lymph nodes palpable in the supraclavicular areas bilaterally measuring less than 2 cm in size. CHEST: Clear bilaterally with no added sounds. CARDIOVASCULAR: Regular rate and rhythm without any murmurs. ABDOMEN: Soft. Bowel sounds positive. MUSCULOSKELETAL: No significant arthropathy, gait not assessed. NEUROLOGICAL: No evidence of any focal neurological deficit. INTEGUMENTARY: The patient has a generalized erythematous maculopapular rash, which seems to have some signs of urticaria. ASSESSMENT AND PLAN: The patient is a very pleasant 43-year-old female who has a history of recent prolonged vancomycin treatment due to abscess involving the left elbow area with possible involvement of the bone. The patient is currently admitted to the hospital with nausea, vomiting and was found to have elevation in her liver function tests upon admission, which are slowly improving. The patient's CT scan of the abdomen did not show any lymphadenopathy or hepatosplenomegaly or any other structural changes. CT scan of the neck did show some scattered lymphadenopathy measuring up to 1.5 cm. The patient does have some history of unexplained fevers or night sweats, which raised some concern for possible lymphoma, which could be possibly tied into paraneoplastic skin changes. The patient would like to proceed with an excisional biopsy of this lymph node. I will consult Dr. Giang, who has seen the patient recently for skin biopsy for consideration of an excisional lymph node biopsy from the neck. I will also plan to check LDH level and we will also complete her CT imaging studies with a CT scan of the chest with contrast to detect any thoracic lymphadenopathy, which could possibly explain her nausea and dysphagia as well. We will plan to follow up on these findings and we will keep the patient informed. Thank you for allowing us to participate in care of this pleasant patient. By: 1401 [id number] Doll MD /nt
[~2019-02-23 21:48] MED LIST changes: +KEFLEX500 M2 PO; +NORCO 5-325 TA1 EACH PO; +VANCOMYCIN HC1.25 GM IV
[2019-02-23 22:03] VITALS: BP 158/114
[2019-02-23 22:28] LABS: URINE BILIRUBIN NEGATIVE (Negative); URINE BLOOD 1+ (Negative); URINE CLARITY CLEAR; URINE COLOR YELLOW; URINE GLUCOSE-RANDOM NEGATIVE (Negative); URINE KETONES NEGATIVE (Negative); URINE LEUKOCYTES-REFLEX NEGATIVE (Negative); URINE NITRITE-REFLEX NEGATIVE (Negative); URINE PROTEIN NEGATIVE (Negative); URINE SPECIFIC GRAVITY <= 1.005 (1.005-1.030); URINE UROBILINOGEN 0.2 E.U./dl (0.2-1.0)
[2019-02-23 22:48] LABS: CASTS None Seen /LPF (None Seen); SQUAMOUS >10 Many /LPF (0-3)
[2019-02-23 22:49] LABS: BACTERIA-REFLEX 1-9 Few /HPF (None Seen); CRYSTALS None Seen /LPF (None Seen); URINE RBC 3-10 Few /HPF (0-2); URINE WBC-REFLEX 0-5 Rare /HPF (0-5)
[2019-02-23 23:02] LABS: ABSOLUTE BASOPHILS 0.1 thou/uL (0.0-0.2); ABSOLUTE EOSINOPHILS 0.6 thou/uL (0.0-0.7); ABSOLUTE LYMPHOCYTES 1.9 thou/uL (0.8-5.3); ABSOLUTE MONOCYTES 0.8 thou/uL (0.0-1.2); ABSOLUTE NEUTROPHILS 5.4 thou/uL (1.6-8.1); BASOPHILS 0.7 %; EOSINOPHILS 7.3 %; HEMATOCRIT 38.4 % (37.0-47.0); HEMOGLOBIN 13.3 gm/dL (12.0-15.0); LYMPHOCYTES 21.8 %; MCH 33.7 pg (26.0-34.0); MCHC 34.8 g/dL (28.0-37.0); MCV 96.9 fL (80.0-100.0); MONOCYTES 9.3 %; MPV 9.5 fl. (7.2-11.1); NUCLEATED RBCS 0 /100WBC; PLATELET COUNT* 101 thou/uL (150-400); POLYS 60.9 %; RBC 3.96 mil/uL (4.20-5.00); RDW-CV 12.9 % (10.5-14.5); WBC 8.9 thou/uL (4.0-11.0)
[2019-02-23 23:18] LABS: ALBUMIN 3.3 g/dL (3.4-5.0); CREATININE 0.9 mg/dL (0.6-1.3); POTASSIUM 3.7 mmol/L (3.5-5.1); TOTAL BILIRUBIN 0.5 mg/dL (<0.1-1.0); TOTAL PROTEIN 7.3 g/dL (6.4-8.2)
[2019-02-24 01:45] VITALS: BP 136/94; BP 146/74
[2019-02-24 08:00] VITALS: BP 139/76
[2019-02-24 11:41] VITALS: BP 160/94
[2019-02-24 12:42] LABS: CALCIUM 8.2 mg/dL (8.5-10.1); CREATININE 0.9 mg/dL (0.6-1.3); MAGNESIUM 1.6 mg/dL (1.8-2.4); POTASSIUM 3.6 mmol/L (3.5-5.1); TOTAL BILIRUBIN 0.5 mg/dL (<0.1-1.0); TOTAL PROTEIN 6.6 g/dL (6.4-8.2)
[2019-02-24 12:43] LABS: APTT 29.6 Seconds (25.0-31.3); PROTIME 10.3 Seconds (9.20-11.50)
[2019-02-24 13:02] LABS: INFLUENZA A ANTIGEN None Detected (None Detect); INFLUENZA B ANTIGEN None Detected (None Detect)
[2019-02-24 15:39] VITALS: BP 130/81
[2019-02-24 16:52] LABS: AMP/METHAMP Negative (Negative); BARBITURATES Negative (Negative); BENZODIAZEPINES Negative (Negative); COCAINE Negative (Negative); METHADONE Negative (Negative); OPIATES POSITIVE (Negative); PCP Negative (Negative); THC Negative (Negative)
[2019-02-24 20:19] VITALS: BP 160/102
[2019-02-24 22:10] VITALS: BP 151/99
[2019-02-25] VITALS: BP 110/56; BP 114/67
[2019-02-25 04:00] VITALS: BP 112/93
[2019-02-25 05:13] LABS: HEMATOCRIT 35.3 % (37.0-47.0); HEMOGLOBIN 12.2 gm/dL (12.0-15.0); MCH 33.6 pg (26.0-34.0); MCHC 34.7 g/dL (28.0-37.0); MCV 96.9 fL (80.0-100.0); MPV 9.4 fl. (7.2-11.1); RBC 3.64 mil/uL (4.20-5.00); RDW-CV 13.2 % (10.5-14.5)
[2019-02-25 05:24] LABS: ALBUMIN 2.7 g/dL (3.4-5.0); CALCIUM 7.6 mg/dL (8.5-10.1); CREATININE 0.9 mg/dL (0.6-1.3); TOTAL BILIRUBIN 0.5 mg/dL (<0.1-1.0); TOTAL PROTEIN 6.2 g/dL (6.4-8.2)
[2019-02-25 08:00] VITALS: BP 118/62
[2019-02-25 10:07] LABS: HEPATITIS B SURFACE AG Negative (Negative)
--- NOTE | 2019-02-25 12:35 | CON ---
[address] [address] CONSULTATION Name: GASPERDOMINIQUE Joaquín Room: [address] IN .R.#: [id number] Admission: 02/24/19 Attend Phys: Rosaura Hall Discharge: Date of : 77 Report #: [id number] THIS REPORT FOR: //name// CC: Angel Pinzon DATE OF SERVICE: 02/24/2019 INFECTIOUS DISEASE CONSULTATION ATTENDING PHYSICIAN: Walter Pinzon DO. REASON FOR CONSULTATION: Febrile illness with recent pruritic type eruption, abdominal pain with elevated liver function tests. HISTORY OF PRESENT ILLNESS: Chart reviewed, patient examined. This is a 43-year-old woman known to myself, who was actually admitted in latter part of December with complaints of left elbow related pain, inflammation and was has diagnosed with a deep elbow infection. At that point, underwent operative debridement. She was discharged home on parenteral therapy with vancomycin. Preop antibiotics perhaps rendered the culture sterile. She had been doing fairly well, responding to treatment with decrease inflammation associated with the elbow over the course of last 3 days prior to admission. She had a biphasic illness where she developed a generalized pruritic eruption, which sounds like hives as well as headache and fevers. There was some concern about possible hypersensitivity reaction and/or line related infection. She has been on vancomycin for roughly 4 weeks. Antibiotics were held and she actually improved, the rash resolved; however, she subsequently developed additional generalized pain involving her joints. She was taking perhaps excess ibuprofen and hydrocodone with acetaminophen. On evaluation, she was found to have elevated hepatic transaminases. The PICC line was pulled, cultures have been collected. Overall, she feels slightly better. She is not encephalopathic. Denies pulmonary related complaints. She does have what appears to be some painful adenopathy involving the right posterior auricular area as well as the right inguinal area. She is not aware of any exposure history. ALLERGIES: LISTED TO APPLE. CURRENT MEDICATIONS: Include pantoprazole, promethazine, ondansetron, hydrocodone, oxycodone. PAST MEDICAL HISTORY: Includes fibromyalgia, previous hysterectomy, recent deep elbow infection, syncopal episodes. SOCIAL HISTORY: Smokes cigarettes, a pack a day, [place] [address] CONSULTATION Name: DOMINIQUE JACKMAN Room: [address]#: [id number] Admission: 02/24/19 Attend Phys: Rosaura Hall Discharge: Date of : 77 Report #: [id number] FAMILY HISTORY: Noncontributory. REVIEW OF SYSTEMS: Otherwise, unremarkable 10-point review of systems otherwise as noted above history of present illness. PHYSICAL EXAMINATION: GENERAL: She is alert, cooperative, in ikay-ok-utogcjaf distress. She is not encephalopathic, appears somewhat undernourished. VITAL SIGNS: Temperature 97.9, pulse 79, respirations 18, blood pressure 130/81. SKIN: Warm, multiple tattoos, dry, nondiaphoretic. HEENT: Normocephalic, does have some tenderness in the right posterior auricular area. It is not a clear discrete lymph node, would appreciate inflammatory eruption noted at that site. Extraocular muscles intact. NECK: Supple. LUNGS: Clear to auscultation. HEART: Regular. Borderline tachycardic. I do not appreciate murmur. ABDOMEN: Soft, nontender, nondistended. EXTREMITIES: Left elbow is improved since her last hospitalization with minimal inflammation. There is some degree of erythema, I think it is more consistent with hyperemia. It is not really tender. There is not excess fluid noted on palpation. GENITOURINARY: Deferred. RECTAL: Deferred. LABORATORY DATA: Urinalysis 0-5 white cells. Chest x-ray, no acute process. CBC: White count of 8.9, H and H 13.3 and 38.4, platelets of 101, eosinophils were 600. Electrolytes: Sodium 139, potassium 3.7, chloride 102, bicarbonate is 25, anion gap of 12, BUN and creatinine 9 and 0.9, AST of 202, ALT of 521, total bilirubin of 0.5, lipase of 172, albumin 3.3, total protein 7.3, estimated GFR 69, lactic acid 1.1. CT abdomen and pelvis showed ovarian cyst, bilateral renal cysts, otherwise unremarkable. Blood cultures sterile thus far, collected on 02/23/2019. Ultrasound showed no abnormalities. Of note, lactic acid of 0.8 on repeat. CRP of 47.6. Rapid Strep A was negative. Influenza antigen was not detected for A or B. Sed rate of 19. ASSESSMENT: Febrile illness with a rash, no evidence of hepatitis, I think it is most likely medicine related. Again, at this point, I do not think there is necessity to reinitiate therapy for the left elbow. We will hold all the antibiotics for now. Imaging was otherwise unremarkable for some sort of focal pyogenic process or obstructive type issue, cannot exclude a viral etiology given the multifocal nature of the painful adenopathy. We will see how she does [address] [address] CONSULTATION Name: DOMINIQUE JACKMAN Room: [address] IN .R.#: [id number] Admission: 02/24/19 Attend Phys: Rosaura Hall Discharge: Date of : 77 Report #: [id number] clinically with symptomatic treatment and await results including blood cultures. Of note, the line has been removed. <ELECTRONICALLY SIGNED> By: Geoff Bernstein MD 02/25/19 1235 1650 1941Jostacie Bernstein MD /nt
[2019-02-25 17:26] VITALS: BP 137/82
[2019-02-25 20:58] VITALS: BP 118/80
[2019-02-26] VITALS: BP 129/69
[2019-02-26 05:08] LABS: HEMATOCRIT 35.7 % (37.0-47.0); HEMOGLOBIN 12.2 gm/dL (12.0-15.0); MCH 33.3 pg (26.0-34.0); MCHC 34.3 g/dL (28.0-37.0); MCV 97.1 fL (80.0-100.0); MPV 10.1 fl. (7.2-11.1); RBC 3.68 mil/uL (4.20-5.00); RDW-CV 13.4 % (10.5-14.5)
[2019-02-26 05:27] LABS: ALBUMIN 2.2 g/dL (3.4-5.0); CALCIUM 7.3 mg/dL (8.5-10.1); CREATININE 0.8 mg/dL (0.6-1.3); POTASSIUM 3.3 mmol/L (3.5-5.1); TOTAL BILIRUBIN 0.5 mg/dL (<0.1-1.0); TOTAL PROTEIN 5.3 g/dL (6.4-8.2)
[2019-02-26 08:00] VITALS: BP 101/64
[2019-02-26 11:25] LABS: HEMATOCRIT 37.3 % (37.0-47.0); HEMOGLOBIN 12.8 gm/dL (12.0-15.0); MCH 33.1 pg (26.0-34.0); MCHC 34.2 g/dL (28.0-37.0); MCV 96.6 fL (80.0-100.0); NUCLEATED RBCS 0 /100WBC; PLATELET COUNT* 109 thou/uL (150-400); RBC 3.86 mil/uL (4.20-5.00); RDW-CV 13.5 % (10.5-14.5); WBC 10.8 thou/uL (4.0-11.0)
[2019-02-26 11:28] VITALS: BP 104/63
[2019-02-26 11:51] LABS: ABSOLUTE BASOPHILS 0.1 thou/uL (0.0-0.2); ABSOLUTE EOSINOPHILS 1.6 thou/uL (0.0-0.7); ABSOLUTE LYMPHOCYTES 2.9 thou/uL (0.8-5.3); ABSOLUTE MONOCYTES 0.3 thou/uL (0.0-1.2); ABSOLUTE NEUTROPHILS 5.8 thou/uL (1.6-8.1); ATYPICAL LYMPHS 4 %
[2019-02-26 11:52] LABS: PLATELET ESTIMATE ADEQUATE
[2019-02-26 15:55] VITALS: BP 110/68
[2019-02-26 20:00] VITALS: BP 120/72
[2019-02-27] VITALS: BP 110/60
[2019-02-27 08:00] VITALS: BP 138/84
[2019-02-27 09:10] LABS: CMV IgM Abs <30.0 AU/mL (0.0-29.9)
[2019-02-27 09:48] LABS: HEMATOCRIT 35.5 % (37.0-47.0); HEMOGLOBIN 11.9 gm/dL (12.0-15.0); MCH 32.7 pg (26.0-34.0); MCHC 33.5 g/dL (28.0-37.0); MCV 97.7 fL (80.0-100.0); MPV 11.5 fl. (7.2-11.1); RBC 3.64 mil/uL (4.20-5.00); RDW-CV 13.3 % (10.5-14.5)
[2019-02-27 10:18] LABS: ALBUMIN 2.2 g/dL (3.4-5.0); CALCIUM 7.5 mg/dL (8.5-10.1); CREATININE 0.8 mg/dL (0.6-1.3); POTASSIUM 3.9 mmol/L (3.5-5.1); TOTAL BILIRUBIN 0.5 mg/dL (<0.1-1.0); TOTAL PROTEIN 5.4 g/dL (6.4-8.2)
[2019-02-27 10:40] VITALS: BP 111/66
[2019-02-27 20:00] VITALS: BP 112/77
[2019-02-28 08:10] LABS: HEMATOCRIT 32.3 % (37.0-47.0); HEMOGLOBIN 10.7 gm/dL (12.0-15.0); MCH 32.3 pg (26.0-34.0); MCHC 33.3 g/dL (28.0-37.0); MCV 97.1 fL (80.0-100.0); MPV 11.3 fl. (7.2-11.1); RBC 3.32 mil/uL (4.20-5.00); RDW-CV 13.7 % (10.5-14.5)
[2019-02-28 08:30] LABS: CALCIUM 7.7 mg/dL (8.5-10.1); CREATININE 0.8 mg/dL (0.6-1.3); POTASSIUM 4.1 mmol/L (3.5-5.1)
[2019-02-28 09:00] VITALS: BP 134/65
[2019-02-28 16:00] VITALS: BP 126/64
[2019-02-28 19:50] VITALS: BP 131/53
[2019-03-01 10:06] LABS: IgA 93 mg/dL (87-352); IgG 554 mg/dL (700-1600); IgM 111 mg/dL (26-217)
[2019-03-01 15:08] LABS: ANA INTERPRETATION Negative (Negative)
[2019-03-01 19:30] VITALS: BP 121/69
[2019-03-01 23:07] LABS: GLYCOHEMOGLOBIN (HGB A1C) 5.5 % (4.8-5.6)
[2019-03-02 05:27] LABS: HEMATOCRIT 31.3 % (37.0-47.0); HEMOGLOBIN 10.4 gm/dL (12.0-15.0); MCH 32.4 pg (26.0-34.0); MCHC 33.3 g/dL (28.0-37.0); MCV 97.2 fL (80.0-100.0); MPV 9.9 fl. (7.2-11.1); RBC 3.22 mil/uL (4.20-5.00); RDW-CV 14.1 % (10.5-14.5); WBC 29.5 thou/uL (4.0-11.0)
[2019-03-02 06:03] LABS: ALBUMIN 2.2 g/dL (3.4-5.0); CALCIUM 7.5 mg/dL (8.5-10.1); CREATININE 0.9 mg/dL (0.6-1.3); POTASSIUM 3.9 mmol/L (3.5-5.1); TOTAL BILIRUBIN 0.3 mg/dL (<0.1-1.0); TOTAL PROTEIN 5.2 g/dL (6.4-8.2)
[2019-03-02 08:35] VITALS: BP 129/75
--- NOTE | 2019-03-02 11:07 | PATH ---
[facility] [address] [place] [address] PATHOLOGY RPT PROCEDURE Name: MEAGAN REYES Room: [address] IN .R.#: [id number] Admission: 02/24/19 Date of : 77 Discharge: Report #: [id number] Path Case #: [id number] [facility] Accession Number: [id number] . 01 Material submitted: . SKIN BIOPSY LEFT ABDOMEN . 01 Clinical history: . Skin biopsy for possible autoimmune rash. . 02 Diagnosis: Skin, left abdomen: - Superficial perivascular inflammation (see comment). (SAS:emani; 03/02/2019) QMS/03/02/2019 . 02 Comment: The case was evaluated with additional deeper levels as well as a PAS stain for fungus which is negative. . The patient's admission notes were reviewed. The patient presented for diffuse pain, fever, nausea, vomiting, and some diarrhea that had started a few days prior to admission. The patient had completed IV Vancomycin five days prior for left elbow infection. On physical exam, the rash was described as a diffuse erythematous papular rash located mostly on bilateral legs and abdomen. The patient has a history of fibromyalgia, syncopal episodes and autoimmune disease. . 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 If clinically indicated, a lesional biopsy sent for direct immunofluorescence should be considered. . (SAS:emani; 03/02/2019) . Special stain: PAS fungus (A1, A2) . 02 Electronically signed: . Meagan Amos MD, Pathologist NPI- [id number] . 01 Gross description: . Received in formalin labeled "Meagan Reyes, left abdomen skin biopsy" is an unoriented ellipse of vinson-brown skin measuring 2.0 x 0.6 x 0.3 cm. The skin surface is grossly unremarkable without a definitive lesion. The margin is inked and the specimen is sectioned into 7 pieces. The specimen is submitted in cassettes A1-A2, with the tips placed in A2. ([facility]; 02/25/2019) [facility]/[place] [address] PATHOLOGY RPT PROCEDURE Name: MEAGAN RYEES Room: [address] IN M.R.#: [id number] Admission: 02/24/19 Date of : 77 Discharge: Report #: [id number] Path Case #: [id number] . 02 Microscopic: . Multiple levels and additional requested deeper levels of a sectioned ellipse of skin show focally within the biopsy mild hyperkeratosis. There is focal irregular epidermal acanthosis and spongiosis with a few scattered dyskeratotic keratinocytes. Centrally, there is a superficial perivascular and interstitial lymphohistiocytic inflammatory cell infiltrate which also includes neutrophils and eosinophils as well as focal perivascular fibrin, pigmented dermal macrophages and extravasated red blood cells. The surrounding dermis shows a mild superficial perivascular lymphohistiocytic inflammatory cell infiltrate with only a few eosinophils. A PAS stain for fungus was performed, along with an appropriate positive control, on both blocks A1 and A2, and is negative. (SAS:emani; 03/02/2019) . 02 Pathologist provided ICD-10: L98.8 . 02 CPT . 046055, 285792, 158300 Specimen Comment: A courtesy copy of this report has been sent to Specimen Comment: [phone], , , . Specimen Comment: Report sent to ,DR CHAMBERLAIN,DR SHEEHAN Specimen Comment: DR MCINTOSH Performed at: 01 [facility] [address] [place] [address] [address], [place] [id number] MD Angel Lerma MD Phone: [phone] Performed at: 02 [facility] [address] [id number] MD Meagan Amos MD Phone: [phone]
[2019-03-02 15:57] VITALS: BP 146/68
[2019-03-03] VITALS: BP 122/60
[2019-03-03 04:51] LABS: HEMATOCRIT 30.8 % (37.0-47.0); HEMOGLOBIN 10.3 gm/dL (12.0-15.0); MCH 32.7 pg (26.0-34.0); MCHC 33.5 g/dL (28.0-37.0); MCV 97.5 fL (80.0-100.0); MPV 9.7 fl. (7.2-11.1); RBC 3.16 mil/uL (4.20-5.00); WBC 20.8 thou/uL (4.0-11.0)
[2019-03-03 05:12] LABS: ALBUMIN 2.2 g/dL (3.4-5.0); CREATININE 0.7 mg/dL (0.6-1.3); MAGNESIUM 1.9 mg/dL (1.8-2.4); POTASSIUM 3.8 mmol/L (3.5-5.1); TOTAL BILIRUBIN 0.3 mg/dL (<0.1-1.0); TOTAL PROTEIN 5.4 g/dL (6.4-8.2)
[2019-03-03 09:20] VITALS: BP 137/71
--- NOTE | 2019-03-03 11:25 | OP ---
[facility] [address] [place] [address] OPERATIVE REPORT Name: DOMINIQUE JACKMAN Room: [address] IN M.R.#: [id number] Admission: 02/24/19 Attend Phys: Rosaura Hall Discharge: Date of : 77 Report #: [id number] THIS REPORT FOR: //name// CC: Angel Pinzon DATE OF SERVICE: 03/01/2019 PREOPERATIVE DIAGNOSES: Right cervical lymphadenopathy and all over body rash. POSTOPERATIVE DIAGNOSES: Right cervical lymphadenopathy and all over body rash. PROCEDURE: Excisional biopsy of right cervical lymph node. SURGEON: Terry Giang DO NURSE RESEARCH: Dr. Lizandro Farrell. SECOND ENVIRONMENTAL COMPLIANCE TECHNICIAN: Dr. Aram Martinez. ANESTHESIA: General with an LMA. ESTIMATED BLOOD LOSS: Less than 20 mL. COMPLICATIONS: None. DESCRIPTION OF PROCEDURE: After obtaining proper consents and discussing risks and complications with the patient, she was taken to the operating room, laid in the supine position, administered general anesthesia. She was then prepped and draped in the usual fashion. A timeout was performed. We confirmed the appropriate patient and procedure. Preoperative antibiotics had been given. SCDs were placed and the site had been previously marked in the preoperative holding area. I then made a small incision approximately 2.5 cm long along the lines of Ever. This was carried down through the skin into the subcutaneous tissue using electrocautery for hemostasis. Once through the subcutaneous tissue, I could not identify any definite lymph node, so we did obtain an ultrasound and with the ultrasound in hand, I was able to identify the lymph node which was slightly anterior to where I had made the incision. I then dissected down to this using blunt and sharp dissection with Metzenbaum scissors and also hemostat until I was able to visualize the lymph node. Once the lymph node was visualized, I completely dissected it free. A clip was placed around the vessel going into the lymph node. We then passed the lymph node off as specimen and sent it for pathologic examination. We then closed the subcutaneous tissue using 3-0 Vicryl suture. The skin was closed using 4-0 [place] [address] OPERATIVE REPORT Name: DOMINIQUE JACKMAN Room: [address] IN [facility]#: [id number] Admission: 02/24/19 Attend Phys: Rosaura Hall Discharge: Date of : 77 Report #: [id number] Monocryl subcuticular stitches. Mastisol, Steri-Strips, sterile OpSite and pressure dressings were placed. The patient was awakened in the operating room and transported to recovery room in stable condition. <ELECTRONICALLY SIGNED> By: Terry Giang DO 03/03/19 1125 1456 [id number] Giang DO /alayna
[2019-03-03 16:03] VITALS: BP 159/81
[2019-03-03 19:10] LABS: ANA INTERPRETATION Negative (())
[2019-03-03 21:42] VITALS: BP 147/74
[2019-03-04 08:41] LABS: HEMATOCRIT 34.7 % (37.0-47.0); HEMOGLOBIN 11.9 gm/dL (12.0-15.0); MCHC 34.3 g/dL (28.0-37.0); MCV 96.2 fL (80.0-100.0); MPV 9.3 fl. (7.2-11.1); RBC 3.61 mil/uL (4.20-5.00); RDW-CV 14.1 % (10.5-14.5); WBC 15.8 thou/uL (4.0-11.0)
[2019-03-04 08:50] VITALS: BP 125/72
[2019-03-04 08:53] LABS: ALBUMIN 2.5 g/dL (3.4-5.0); CALCIUM 8.6 mg/dL (8.5-10.1); CREATININE 0.7 mg/dL (0.6-1.3); POTASSIUM 3.4 mmol/L (3.5-5.1); TOTAL BILIRUBIN 0.3 mg/dL (<0.1-1.0); TOTAL PROTEIN 6.3 g/dL (6.4-8.2)
[2019-03-04] MEDS ORDERED: FLUCONAZOLE 10100 MG PO (09:32)
[2019-03-04] MEDS ORDERED: PREDNISONE 10 M10 MG PO (09:32)
[2019-03-04] MEDS ORDERED: NORCO 5-325 TA1 EACH PO (09:32)
[2019-03-04] MEDS ORDERED: TRAMADOL 50 MG50 MG PO (09:32)
[2019-03-04] MEDS ORDERED: LIDOPATCH1 EACH TOP (09:32)
[2019-03-04 12:59] VITALS: BP 125/72
[2019-03-04 15:25] VITALS: BP 125/72
--- NOTE | 2019-03-05 15:06 | PATH ---
[address] [address] PATHOLOGY RPT PROCEDURE Name: MEAGAN REYES Room: [address] IN M.R.#: [id number] Admission: 02/24/19 Date of : 77 Discharge: 03/04/19 Report #: [id number] Path Case #: [id number] [facility] Accession Number: [id number] . 01 Material submitted: . lymph node - RIGHT CERVICAL LYMPH NODE . 01 Clinical history: . Lymphadenopathy . 02 Diagnosis: "Right cervical lymph node", excisional biopsy: - Lymph node with hyperplasia; no evidence of lymphoma (see comment). . Please see included [facility] report [id number]. AZJ/03/04/2019 . 02 Comment: Sections show fragments of lymph node with overall retained stephy architecture. There is a mildly expanded interfollicular space by a reactive appearing lymphohistiocytic process. Rare small germinal centers with tingible body macrophages are noted. No markedly atypical lymphoid cells, including Yamil-Christopher cells, are identified. No granulomas or other infiltrative processes are seen. . To confirm the flow cytometry findings and to identify cells in a tissue architectural context, properly controlled immunohistochemical stains are performed. . Block A1 CD3 - Highlights interfollicular T-cells PAX5 - Stains cortical B-cells primarily in follicles . Flow cytometric immunophenotypic analysis was performed at [facility]. The diagnosis is: "No significant lymphoid immunophenotypic abnormalities detected." There are 40% lymphocytes. Of the lymphocytes, there are 3.1% polyclonal B-cells. T-cells have a CD4/CD8 ratio of 4.7 and no aberrant T-cell antigen expression. Please see separate flow cytometry report from [facility] ([id number]). . Overall, the diagnosis is lymph node with hyperplasia. There is no diagnostic evidence of lymphoma. The H and E stained slides are also reviewed by Dr. Raphael Amezquita. Clinical and radiographic correlation is required. (CLW/db; 03/04/2019) . 02 Electronically signed: . Camille Ac MD, [place] [address] PATHOLOGY RPT PROCEDURE Name: MEAGAN REYES Room: [address] DIS IN M.R.#: [id number] Admission: 02/24/19 Date of : 77 Discharge: 03/04/19 Report #: [id number] Path Case #: [id number] I- [id number] . 01 Gross description: . Specimen is received in formalin, labeled "Meagan Reyes, right cervical lymph node", are two vinson, rubbery tissues measuring 0.6 x 0.5 x 0.3 cm and 0.6 x 0.4 x 0.2 cm. The largest fragment is bisected and the tissue is entirely submitted in A1. Also received is an RPMI tube, labeled "Eric Rhodes right cervical lymph node for flow", contains a vinson tissue approximately measuring 0.5 cm in greatest dimension. This is forwarded for additional studies. (SWS; 03/01/2019) SHS/SHS . 02 Microscopic: . Special studies report received from [facility], [address] [place] [address], [address], [place], [address], on case [id number], labeled with their number [id number], dated 03/03/2019. . Flow Cytometry: Hematologic Neoplasia Assessment . Clinical History Lymphadenopathy . Indication for Study Evaluation for lymphadenopathy . Specimen Lymph Node, Right Cervical . Viability 42% (7AAD exclusion) . Interpretation Lymph Node, Right Cervical : No significant lymphoid immunophenotypic abnormalities detected. See comments. . Comments Hodgkin lymphoma, some large cell lymphomas and some peripheral T-cell lymphomas cannot be categorically excluded by flow cytometric analysis. Correlation with the morphologic findings is recommended. . Results should be interpreted with caution due to reduced viability of the specimen (42%). . Populations Analyzed Lymphocytes: 40% B-cells: 3.1%, polytypic/polyclonal sIg light chain pattern T-cells: no significant abnormalities of the markers [address] [address] PATHOLOGY RPT PROCEDURE Name: MEAGAN REYES Room: [address] IN M.R.#: [id number] Admission: 02/24/19 Date of : 77 Discharge: 03/04/19 Report #: [id number] Path Case #: [id number] tested CD4:CD8: 4.7 NK cells: 0.3% CD45 Negative 60% No significant reactivity with the markers tested Events/Debris: (may represent non-hematolymphoid cells, degenerated cells, debris, unlysed red blood cells, etc.) . Morphologic Evaluation A slide was reviewed for vice president quality improvement purposes only. . Specimen Description Total Cell Yield: 5.90 X 10 and 6 . Reagent(s) Used CD2, CD3, CD4, CD5, CD7, CD8, CD10, CD11b, CD19, CD20, CD23, CD30, CD38, CD43, CD45, CD56, CD57, FMC-7, HLA-DR, kappa, lambda . at [place], [employer]. Talat Aquino MD Hematopathologis . . Intended Use Flow cytometry is optimally used to immunophenotypically characterize abnormal populations when they are detected. Negative flow cytometry results do not exclude lymphoma or neoplasia. Possible false negative flow cytometry results may occur in, but are not limited to, the following: neoplastic cells in Hodgkin lymphoma are not typically adequately represented by routine clinical flow cytometry; neoplastic cells may be lost or inadequately represented due to degeneration, sample processing, sampling artifact, or patchy involvement; plasma cells are typically underrepresented by flow cytometry; immature cells/blasts may be underrepresented due to hemodilution; myeloproliferative disorders and low grade myelodysplasia may not have immunophenotypic abnormalities or increased blasts. Correlation with all available clinical, laboratory, and morphologic data is always necessary to assess for the possibility of false negative flow cytometry results and to establish a diagnosis. Each marker in this analysis was used to assess for potential antigenic abnormalities or to evaluate detected abnormalities. . Disclaimer(s) This test was performed at [facility]. at [address], [place], [address] - Wardrobe Technician: Jacob Wilson MD. [facility] is a business unit of [employer] a wholly-owned subsidiary of [place] [address] PATHOLOGY RPT PROCEDURE Name: MEAGAN REYES Room: [address] IN [facility].#: [id number] Admission: 02/24/19 Date of : 77 Discharge: 03/04/19 Report #: [id number] Path Case #: [id number] Any image or images that accompany this report are rental sales representative images only and should not be used to render a diagnosis. . This test was developed and its performance characteristics determined by [facility]. It has not been cleared or approved by the Food and Drug Administration (FDA). The FDA has determined that such clearance or approval is not necessary. . For inquiries, the physician may contact Lab: [phone] . A complete copy of the report is on file. . Professional services performed by [facility]. at [address], [place] [address]. Technical services performed by [facility]. at [address], [place] [address]. . (AMJ 03/03/2019) . . 02 Pathologist provided ICD-10: R59.9 . 02 CPT . 681440 Specimen Comment: A courtesy copy of this report has been sent to Specimen Comment: [phone], , . Specimen Comment: Report sent to ,DR MENJIVAR / DR MCINTOSH Performed at: 01 [facility] [address] [id number] MD Angel Lerma MD Phone: [phone] Performed at: 02 [facility] [address] [id number] MD Cristian Jeong MD Phone: [phone]
== END 2019-03-04 15:25 | disposition home or self-care (01) | DRG 803 ==
LOC: M.ERS 21:48 → M.2W 02-24 00:51 → M.TBA-ER 02-24 00:51 → M.2W 02-24 01:49 → M.3W 02-27 10:31
PROVIDERS: Emergency Medicine; Internal Medicine; Internal Medicine Gastroenterology; Nurse Practitioner Family; Specialist; Surgery; ADMIT Internal Medicine
PROC: 0HB7XZX Excision of Abdomen Skin, External Approach, Diagnostic (ICD-10-PCS; principal; 2019-02-25)
PROC: 07B10ZX Excision of Right Neck Lymphatic, Open Approach, Diagnostic (ICD-10-PCS; 2019-03-01)
DX: R59.0 Localized enlarged lymph nodes (principal); B17.9 Acute viral hepatitis, unspecified; R65.10 Systemic inflammatory response syndrome (SIRS) of non-infectious origin without acute organ dysfunction; R04.2 Hemoptysis; L03.119 Cellulitis of unspecified part of limb; K75.4 Autoimmune hepatitis; M79.7 Fibromyalgia; L29.9 Pruritus, unspecified; L27.0 Generalized skin eruption due to drugs and medicaments taken internally; M70.30 Other bursitis of elbow, unspecified elbow; R16.1 Splenomegaly, not elsewhere classified; B97.6 Parvovirus as the cause of diseases classified elsewhere; F17.210 Nicotine dependence, cigarettes, uncomplicated; Z90.710 Acquired absence of both cervix and uterus; Z79.899 Other long term (current) drug therapy; Z91.018 Allergy to other foods

== ENCOUNTER 2019-03-09 07:40 | Inpatient (IN) | payer OTHER ==
[~2019-03-09] VITALS: Ht 162.6 cm; Wt 63.0 kg
[~2019-03-09 07:40] MED LIST changes: +FLUCONAZOLE 10100 MG PO; +LIDOPATCH1 EACH TOP; +PREDNISONE 10 M10 MG PO; +TRAMADOL 50 MG50 MG PO
[2019-03-09 07:41] VITALS: BP 148/100
[2019-03-09 08:21] LABS: ABSOLUTE BASOPHILS 0.2 thou/uL (0.0-0.2); ABSOLUTE EOSINOPHILS 1.1 thou/uL (0.0-0.7); ABSOLUTE LYMPHOCYTES 3.7 thou/uL (0.8-5.3); ABSOLUTE MONOCYTES 1.7 thou/uL (0.0-1.2); ABSOLUTE NEUTROPHILS 9.6 thou/uL (1.6-8.1); BASOPHILS 1.2 %; EOSINOPHILS 6.9 %; HEMATOCRIT 40.1 % (37.0-47.0); HEMOGLOBIN 13.4 gm/dL (12.0-15.0); LYMPHOCYTES 22.7 %; MCH 32.2 pg (26.0-34.0); MCHC 33.4 g/dL (28.0-37.0); MCV 96.4 fL (80.0-100.0); MONOCYTES 10.3 %; MPV 9.4 fl. (7.2-11.1); NUCLEATED RBCS 0 /100WBC; PLATELET COUNT* 351 thou/uL (150-400); POLYS 58.9 %; RBC 4.16 mil/uL (4.20-5.00); RDW-CV 14.6 % (10.5-14.5); WBC 16.3 thou/uL (4.0-11.0)
[2019-03-09 08:32] LABS: APTT 24.6 Seconds (25.0-31.3); PROTIME 9.9 Seconds (9.20-11.50)
[2019-03-09 08:42] LABS: ANION GAP 12 mmol/L (7-16); BUN 21 mg/dL (7-18); CALCIUM 9.2 mg/dL (8.5-10.1); CHLORIDE 98 mmol/L (98-107); CO2 24 mmol/L (21-32); CREATININE 1.1 mg/dL (0.6-1.3); GLUCOSE 98 mg/dL (70-99); POTASSIUM 4.7 mmol/L (3.5-5.1); SODIUM 134 mmol/L (136-145); TROPONIN-I LEVEL <0.06 ng/mL (<0.06)
[2019-03-09 08:44] LABS: ALBUMIN 3.3 g/dL (3.4-5.0); ALKALINE PHOSPHATASE 252 U/L (46-116); NT-PRO BRAIN NAT PEPTIDE 55 pg/mL (<300); SGOT 84 U/L (15-37); SGPT 137 U/L (30-65); TOTAL BILIRUBIN 0.3 mg/dL (<0.1-1.0); TOTAL PROTEIN 7.7 g/dL (6.4-8.2)
--- NOTE | 2019-03-09 09:20 | NUR ---
JONAS NOTIFIED UPON PT RETURN FROM CT. PT CONNECTED TO MONITOR
[2019-03-09 09:29] VITALS: BP 149/89
--- NOTE | 2019-03-09 11:31 | EKG ---
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
[2019-03-09 13:03] LABS: URINE BILIRUBIN NEGATIVE (Negative); URINE BLOOD NEGATIVE (Negative); URINE CLARITY CLEAR; URINE COLOR YELLOW; URINE GLUCOSE-RANDOM NEGATIVE (Negative); URINE KETONES NEGATIVE (Negative); URINE LEUKOCYTES-REFLEX NEGATIVE (Negative); URINE NITRITE-REFLEX NEGATIVE (Negative); URINE PROTEIN NEGATIVE (Negative); URINE SPECIFIC GRAVITY <= 1.005 (1.005-1.030); URINE UROBILINOGEN 0.2 E.U./dl (0.2-1.0)
--- NOTE | 2019-03-09 17:12 | NUR ---
ASSESSMENT COMPLETE. PT ADMITTED WITH DRESS SYNDROME AND WEAKNESS. PT GIVEN FENTANYL AND COMPAZINE IN ER, RELIEF REPORTED FROM PATIENT. PT GIVEN IV BOLUS AND IV ABX UPON ADMISSION TO FLOOR. PT IS NSR ON TELE MONITOR. INFECTIOUS DISEASE CONSULTED. UA SENT. PT IS ON ROOM AIR, VSS. RASH NOTED TO BLE AND HANDS. PT IS SLEEPING AND HAS NO OTHER CONCERNS. PT IS UP AD SANDRA WITH A STEADY GAIT. SEE ASSESSMENT AND VITALS FOR OTHER DETAILS. CALL LIGHT WITHIN REACH, WILL CONTINUE PLAN OF CARE.
[2019-03-09 18:08] VITALS: BP 125/73
[2019-03-09 20:00] VITALS: BP 132/68
[2019-03-10 00:30] VITALS: BP 106/45
[2019-03-10 03:56] LABS: ABSOLUTE BASOPHILS 0.1 thou/uL (0.0-0.2); ABSOLUTE LYMPHOCYTES 3.3 thou/uL (0.8-5.3); ABSOLUTE MONOCYTES 1.7 thou/uL (0.0-1.2); ABSOLUTE NEUTROPHILS 8.2 thou/uL (1.6-8.1); BASOPHILS 0.6 %; EOSINOPHILS 0.2 %; HEMATOCRIT 32.8 % (37.0-47.0); LYMPHOCYTES 24.6 %; MCH 32.8 pg (26.0-34.0); MCHC 33.7 g/dL (28.0-37.0); MCV 97.2 fL (80.0-100.0); MONOCYTES 12.6 %; MPV 8.8 fl. (7.2-11.1); NUCLEATED RBCS 0 /100WBC; PLATELET COUNT* 284 thou/uL (150-400); RBC 3.37 mil/uL (4.20-5.00); RDW-CV 14.5 % (10.5-14.5); WBC 13.2 thou/uL (4.0-11.0)
[2019-03-10 04:00] VITALS: BP 112/70
[2019-03-10 04:19] LABS: ALBUMIN 2.8 g/dL (3.4-5.0); CALCIUM 8.7 mg/dL (8.5-10.1); CREATININE 0.8 mg/dL (0.6-1.3); POTASSIUM 4.3 mmol/L (3.5-5.1); TOTAL BILIRUBIN 0.2 mg/dL (<0.1-1.0); TOTAL PROTEIN 6.8 g/dL (6.4-8.2)
--- NOTE | 2019-03-10 04:26 | NUR ---
ASSUMED ARE AT START OF SHIFT PT C/O GENERALIZED PAIN , CALLED AND NORCO GIVEN, PT THEN RESTED WELL, NO OTHER COMPLAINTS OR CONCERNS VOICED THIS SHIFT/
[2019-03-10 12:00] VITALS: BP 125/75
--- NOTE | 2019-03-10 15:29 | NUR ---
ASSESSMENT COMPLETE. PT ALERT AND ORIENTED X4. PT STATES SHE FEELS BETTER TODAY BEING OFF THE STEROIDS. PT GIVEN BENADRYL AND HYDROCORTISONE CREAM FOR ITCHING. PT REPORTS SKIN PEELING AND ITCHING. HYDROCODONE AND TRAMADOL GIVEN FOR HEADACHE AND NECK PAIN. PT IS UP AD SANDRA WITH STEADY GAIT. STOPPED TELE MONITOR PER DR ORDER. PT IS ON ROOM AIR, VSS. SEE ASSESSMENT AND VITALS FOR OTHER DETAILS. CALL LIGHT WITHIN REACH, WILL CONTINUE PLAN OF CARE
--- NOTE | 2019-03-10 15:31 | NUR ---
Pt known to SW due to pt previous/recent and past admissions. 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 Pt hx of IV abx through [facility]. No dc needs expressed at this time; SW to continue to follow to assist with safe dc planning.
[2019-03-10 16:00] VITALS: BP 128/75
[2019-03-10 19:20] VITALS: BP 137/87
[2019-03-11 04:17] LABS: HEMATOCRIT 34.8 % (37.0-47.0); HEMOGLOBIN 11.6 gm/dL (12.0-15.0); MCH 32.7 pg (26.0-34.0); MCHC 33.3 g/dL (28.0-37.0); MCV 98.2 fL (80.0-100.0); MPV 8.8 fl. (7.2-11.1); RBC 3.55 mil/uL (4.20-5.00); RDW-CV 14.6 % (10.5-14.5); WBC 11.7 thou/uL (4.0-11.0)
[2019-03-11 04:31] LABS: ALBUMIN 2.8 g/dL (3.4-5.0); CALCIUM 8.8 mg/dL (8.5-10.1); CREATININE 0.9 mg/dL (0.6-1.3); MAGNESIUM 2.1 mg/dL (1.8-2.4); POTASSIUM 4.1 mmol/L (3.5-5.1); TOTAL BILIRUBIN 0.2 mg/dL (<0.1-1.0); TOTAL PROTEIN 6.6 g/dL (6.4-8.2)
--- NOTE | 2019-03-11 05:23 | NUR ---
PT SLEPT MOST OF SHIFT. ASSESSMENT DOCUMENTED. MEDS GIVEN PER E-MAR. IV PATENT. PAIN MEDS GIVEN FOR HEADACHE. PT STATES THAT OTHER THAN THE HEADACHE SHE IS FEELING MUCH BETTER. PT ASKING WHEN SHE CAN GET THE STITCHED FROM HER BIOPSY OUT, STATING THAT THEY WERE GOING TO BE REMOVED AT THE DR'S OFFICE ON FRIDAY. WILL CONTINUE WITH PLAN OF CARE.
[2019-03-11 08:20] VITALS: BP 119/69
[2019-03-11] MEDS ORDERED: FOLIC ACID1 MG PO (11:12)
[2019-03-11] MEDS ORDERED: CYMBALTA30 MG PO (11:12)
[2019-03-11 11:20] VITALS: BP 119/69
--- NOTE | 2019-03-11 11:41 | NUR ---
P.T. ORDERS RECEIVED 03/09/19. CHART REVIEWED. NOTED ACTIVITY ORDERS FOR UP AD SANDRA, AND NSG NOTES INDICATING PT UP AD SANDRA WITH STEADY GAIT. SPOKE WITH PT WHO STATED SHE HAS BEEN UP AND AROUND IN HER ROOM W/O DIFFICULTY. PT STATES `I DON'T NEED THERAPY.' WILL DISCHARGE FROM P.T. SERVICES PER PT REQUEST.
--- NOTE | 2019-03-11 12:12 | NUR ---
PATIENT GIVEN PRN HYDROCODONE FOR NECK PAIN, PATIENT STATED SHE FELT IT WAS THE BED MAKING HER NECK HURT. SUTURES REMOVED FROM LEFT ABD BIOPSY SITE PER DR. COLE ORDERS. IV DC'D. PATIENT UP AD SANDRA WITHOUT DIFFICULTY. SKIN NOTED TO BE DRY BUT RASH DECREASED PER PATIENT. PATIENT VERBALIZES UNDERSTANDING OF PAPERWORK AND SCRIPTS. PATIENT TAKEN OOUT WITH NURSING STAFF, AMBULATORY. ALL BELONGINGS WITH PATIENT.
== END 2019-03-11 12:14 | disposition home or self-care (01) | DRG 442 ==
LOC: M.ERS 07:40 → M.3W 08:52 → M.TBA-ER 08:52 → M.3W 09:37
PROVIDERS: Family Medicine; Internal Medicine; ADMIT Family Medicine
DX: B17.9 Acute viral hepatitis, unspecified (principal); R65.10 Systemic inflammatory response syndrome (SIRS) of non-infectious origin without acute organ dysfunction; F17.210 Nicotine dependence, cigarettes, uncomplicated; M79.7 Fibromyalgia; L27.0 Generalized skin eruption due to drugs and medicaments taken internally; N18.2 Chronic kidney disease, stage 2 (mild); K59.09 Other constipation; D72.829 Elevated white blood cell count, unspecified; Z90.710 Acquired absence of both cervix and uterus; Z88.1 Allergy status to other antibiotic agents

== ENCOUNTER → 2019-03-16 | Outpatient (CLI) | payer OTHER ==
[~2019-03-16] MED LIST changes: +CYMBALTA30 MG PO; +FOLIC ACID1 MG PO
[2019-03-16 17:56] LABS: ABSOLUTE EOSINOPHILS 1.2 thou/uL (0.0-0.7); ABSOLUTE LYMPHOCYTES 3.1 thou/uL (0.8-5.3); ABSOLUTE NEUTROPHILS 7.2 thou/uL (1.6-8.1); BASOPHILS 0.4 %; EOSINOPHILS 9.8 %; HEMATOCRIT 36.2 % (37.0-47.0); HEMOGLOBIN 12.1 gm/dL (12.0-15.0); LYMPHOCYTES 24.7 %; MCH 32.3 pg (26.0-34.0); MCHC 33.4 g/dL (28.0-37.0); MCV 96.7 fL (80.0-100.0); MONOCYTES 8.3 %; MPV 8.1 fl. (7.2-11.1); NUCLEATED RBCS 0 /100WBC; PLATELET COUNT* 273 thou/uL (150-400); POLYS 56.8 %; RBC 3.75 mil/uL (4.20-5.00); RDW-CV 14.4 % (10.5-14.5); WBC 12.6 thou/uL (4.0-11.0)
[2019-03-16 18:08] LABS: ALBUMIN 3.1 g/dL (3.4-5.0); CALCIUM 9.8 mg/dL (8.5-10.1); CREATININE 0.9 mg/dL (0.6-1.3); POTASSIUM 3.9 mmol/L (3.5-5.1); TOTAL BILIRUBIN 0.2 mg/dL (<0.1-1.0); TOTAL PROTEIN 7.6 g/dL (6.4-8.2)
== END ==
LOC: M.LAB 17:01
PROVIDERS: Family Medicine
DX: I87.8 Other specified disorders of veins (principal)

== ENCOUNTER 2019-03-24 16:02 | Emergency (ER) | payer OTHER ==
[~2019-03-24] VITALS: Ht 160 cm; Wt 58.1 kg
[2019-03-24 16:26] LABS: HEMATOCRIT 36.3 % (37.0-47.0); HEMOGLOBIN 12.5 gm/dL (12.0-15.0); MCH 32.8 pg (26.0-34.0); MCHC 34.3 g/dL (28.0-37.0); MCV 95.7 fL (80.0-100.0); MPV 8.3 fl. (7.2-11.1); NUCLEATED RBCS 0 /100WBC; PLATELET COUNT* 343 thou/uL (150-400); RDW-CV 14.2 % (10.5-14.5); WBC 9.7 thou/uL (4.0-11.0)
[2019-03-24 16:42] LABS: ALBUMIN 3.2 g/dL (3.4-5.0); ALKALINE PHOSPHATASE 117 U/L (46-116); ANION GAP 10 mmol/L (7-16); BUN 11 mg/dL (7-18); CALCIUM 8.9 mg/dL (8.5-10.1); CHLORIDE 103 mmol/L (98-107); CO2 26 mmol/L (21-32); CREATININE 0.9 mg/dL (0.6-1.3); GLUCOSE 139 mg/dL (70-99); POTASSIUM 3.7 mmol/L (3.5-5.1); SGOT 25 U/L (15-37); SGPT 34 U/L (30-65); SODIUM 139 mmol/L (136-145); TOTAL BILIRUBIN 0.3 mg/dL (<0.1-1.0); TOTAL PROTEIN 7.7 g/dL (6.4-8.2); TROPONIN-I LEVEL <0.06 ng/mL (<0.06)
[2019-03-24 16:53] LABS: APTT 27.5 Seconds (25.0-31.3); PROTIME 10.3 Seconds (9.20-11.50)
[2019-03-24 17:01] VITALS: BP 145/97
[2019-03-24 17:53] LABS: ABSOLUTE EOSINOPHILS 1.5 thou/uL (0.0-0.7); ABSOLUTE LYMPHOCYTES 3.2 thou/uL (0.8-5.3); ABSOLUTE MONOCYTES 0.7 thou/uL (0.0-1.2); ABSOLUTE NEUTROPHILS 4.4 thou/uL (1.6-8.1)
[2019-03-24 17:54] LABS: PLATELET ESTIMATE ADEQUATE
--- NOTE | 2019-03-25 10:21 | EKG ---
[place] [address] ELECTROCARDIOGRAM REPORT Name: DOMINIQUE JACKMAN Room: [facility]#: [id number] Admission: 03/24/19 Attend Phys: Discharge: 03/24/19 Date of : 77 Report #: [id number] THIS REPORT FOR: //name// 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: : 1975 Requested By: Ricardo Perla Order Number: [id number] MD: Bandar Perez Measurements Intervals [place] Rate: 95 P: 56 IA: 125 QRS: 22 QRSD: 82 T: 38 QT: 355 QTc: 447 Interpretive Statements Sinus rhythm Baseline wander in lead(s) V3,V4,V5,V6 Compared to ECG 03/09/2019 08:26:33 No significant changes Electronically Signed On 03-25-2019 10:21:00 CDT by Bandar Perez [email or web address] <ELECTRONICALLY SIGNED> By: Bandar Perez MD, [facility] 03/25/19 1021 162 162 Bandar Perez MD, [facility] /EPI
== END 2019-03-24 17:03 | disposition home or self-care (01) ==
LOC: M.ERS 16:02
PROVIDERS: Family Medicine
DX: R20.2 Paresthesia of skin (principal); F17.210 Nicotine dependence, cigarettes, uncomplicated; M79.7 Fibromyalgia; Z91.018 Allergy to other foods; Z88.1 Allergy status to other antibiotic agents; Z88.8 Allergy status to other drugs, medicaments and biological substances; Z90.710 Acquired absence of both cervix and uterus

== ENCOUNTER 2020-01-18 16:57 | Emergency (ER) | payer OTHER ==
[~2020-01-18] VITALS: Ht 157.5 cm; Wt 61.2 kg
[2020-01-18 17:46] VITALS: BP 180/122
== END 2020-01-18 17:46 | disposition home or self-care (01) ==
LOC: M.ERS 16:57
DX: L98.8 Other specified disorders of the skin and subcutaneous tissue (principal); M79.7 Fibromyalgia; F17.210 Nicotine dependence, cigarettes, uncomplicated; Z88.1 Allergy status to other antibiotic agents; Z88.8 Allergy status to other drugs, medicaments and biological substances; Z90.710 Acquired absence of both cervix and uterus; Z91.018 Allergy to other foods

== ENCOUNTER 2020-08-15 10:08 | Emergency (ER) | payer OTHER ==
[~2020-08-15] VITALS: Ht 157.5 cm; Wt 61.2 kg
[2020-08-15] MEDS ORDERED: FLEXERIL PO (10:52)
[2020-08-15] MEDS ORDERED: NORCO 5-325 TA1 EAC2 PO (10:52)
[2020-08-15 11:10] VITALS: BP 134/73
== END 2020-08-15 11:10 | disposition home or self-care (01) ==
LOC: M.ERS 10:08
DX: M75.21 Bicipital tendinitis, right shoulder (principal); M79.7 Fibromyalgia; Z90.710 Acquired absence of both cervix and uterus; Z88.1 Allergy status to other antibiotic agents; Z91.018 Allergy to other foods; Z88.8 Allergy status to other drugs, medicaments and biological substances